=== PATIENT | male | born 1945 | race Caucasian/White ===

== ENCOUNTER → 2020-06-14 | Outpatient (CLI) | payer OTHER ==
[~2020-06-14] MED LIST: ALFUZOSIN HCL10 MG PO; ASA81BEC PO; CENTRUM SILVER1 EAC7 PO; GLUCOSAMINE &1 EACH PO; HYDROCODON-ACE1 EA11 PO; PRINIVIL10 MG PO; PROSCAR 5MG TABL5 M1 PO
== END ==
LOC: LAB 07:52
PROVIDERS: ATTEND Surgery
DX: Z01.812 Encounter for preprocedural laboratory examination (principal); Z20.828 Contact with and (suspected) exposure to other viral communicable diseases

== ENCOUNTER → 2020-06-17 | Day surgery (SDC) | payer OTHER ==
[~2020-06-17] VITALS: Ht 170.2 cm; Wt 71.2 kg
--- NOTE | 2020-06-17 12:36 | EKG ---
[facility] [place] [address] ELECTROCARDIOGRAM REPORT Name: MARCIAL KIM Room #: REG [facility].#: [id number] Admission: 06/17/20 Attend Phys: Armen French MD Discharge: Date of : 43 Report #: [id number] THIS REPORT FOR: cc: Matteo Baker MD, Steven E. MD Couchonnal, Luis F. MD ~ THIS REPORT FOR: //name// [facility] Test Date: 2020-06-17 Test Time: 12:27:49 Pat Name: MARCIAL KIM Department: Room: Gender: Service Desk Specialist: RAISA : 1945 Requested By: Armen French Order Number: [id number] MD: Juan C Doll Measurements Intervals [place] Rate: 73 P: 3 [place]: 197 QRS: -37 QRSD: 79 T: -40 QT: 451 QTc: 497 Interpretive Statements Sinus bradycardia Left atrial enlargement RSR' in V1 or V2, right VCD or RVH Left ventricular hypertrophy No previous ECG available for comparison Electronically Signed On 06-17-2020 12:36:06 CDT by Juan C Doll [email or web address] <ELECTRONICALLY SIGNED> By: Juan C Doll MD 06/17/20 1236 1227 1227 Juan C Doll MD /EPI
[2020-06-17 12:48] VITALS: BP 152/59
--- NOTE | 2020-06-17 16:49 | O ---
[facility] [place] [place] [address] OPERATIVE REPORT Name: MARCIAL KIM Room #: REG [facility]#: [id number] Admission: 06/17/20 Attend Phys: Armen French MD Discharge: Date of : 43 Report #: [id number] THIS REPORT FOR: cc: Matteo Baker MD, Steven E. MD Franey,Armen Cooper MD ~ CC: [facility] MATTEO French DATE OF SERVICE: 06/17/2020 PATIENT OF: Matteo Baker MD. PREOPERATIVE DIAGNOSIS: Left inguinal hernia. POSTOPERATIVE DIAGNOSIS: Left inguinal hernia with a left cord lipoma. PROCEDURES: Left inguinal hernia repair with Prolene hernia system mesh and excision of a left cord lipoma. SURGEON: Armen French MD. ANESTHESIA: Local with IV sedation. DESCRIPTION OF PROCEDURE: The patient was brought to the operating room and placed on operative table in the supine position. Sequential compression devices were in place for DVT prophylaxis. There was no indication for preoperative antibiotics. The patient underwent IV sedation. Left inguinal area was prepped and draped in a sterile fashion. Skin and subcutaneous tissues were then infiltrated with 0.5% Marcaine and 1% Xylocaine in a 1:1 mixture. Left inguinal skin incision was then performed using #10 scalpel blade. Hemostasis was obtained using electrocautery as well as clamps and 2-0 chromic ties. Dissection was carried down through subcutaneous tissue to the external oblique fascia, which was then incised with a knife and opened with Metzenbaum scissors. The ilioinguinal nerve was identified, dissected free, injected with a local mixture and preserved. Cord was then elevated and held in place with a [place]rie drain. Cremasteric muscle fibers were then split in the direction of their fibers using clamp and electrocautery. A cord lipoma was identified, dissected free, clamped, excised and tied with a 2-0 chromic tie. Floor was inspected and there was a [id number]-lo-[id number] sized direct inguinal hernia defect. This hernia sac was dissected free, opened and the hernia sac was reduced back into the preperitoneal space. An indirect inguinal hernia sac was then also identified, dissected free and reduced back into the preperitoneal space at the internal ring. The preperitoneal space was developed from the internal ring to [address] [address] OPERATIVE REPORT Name: MARCIAL KIM [facility] [id number] Admission: 06/17/20 Attend Phys: Armen French MD Discharge: Date of : 43 Report #: [id number] the pubic tubercle and an extended Prolene hernia system mesh was then inserted through the internal ring and the underlay patch was then deployed into the preperitoneal space extending from the internal ring to the pubic tubercle. The floor was then closed over the mesh using a running 2-0 Prolene 2-layer Shouldice repair. The overlay patch was then deployed into the inguinal canal and secured to the pubic tubercle with the same running 2-0 Prolene suture. The mesh was then secured superiorly and at the connector using simple interrupted 2-0 Vicryl sutures. The mesh was split and wrapped around the cord, secured to the inguinal ligament with simple interrupted 2-0 Vicryl suture. The cord and ilioinguinal nerve were then returned to the canal intact. The external oblique fascia was then closed using running 2-0 Vicryl suture. James's fascia was then reapproximated using 3 simple interrupted 2-0 chromic sutures and the skin then closed with a running 4-0 subcuticular Vicryl stitch. Wound was then dressed with Mastisol, 1/2-inch Steri-Strips cut in half, Telfa, 4 x 4 gauze, sponge and tape. The patient was then awakened from the IV sedation, taken to recovery room in good condition. Estimated blood loss was approximately 10 mL and the patient tolerated procedure well. All sponge, lap and instrument counts correct x 2. <ELECTRONICALLY SIGNED> By: Armen French MD 06/17/20 1649 1542 1617 Armen French MD /nt
--- NOTE | 2020-06-21 16:06 | PATH ---
[facility] [address] [place] [address] PATHOLOGY RPT PROCEDURE Name: TOYIN KIMICK David Room #: REG [facility].#: [id number] Admission: 06/17/20 Date of : 43 Discharge: Report #: [id number] Path Case #: [id number] [facility] Accession Number: [id number] . 01 Material submitted: . hernia - CORD LIPOMA . 01 Clinical history: . HERNIA REPAIR, INGUINAL UNILATERAL . 02 Diagnosis: Mature adipose tissue, cord lipoma, resection: - Fragments compatible with a lipoma. - Fibrovascular connective tissue along with reactive skeletal muscle tissue. (IUV:erica; 06/21/2020) QMS 06/21/2020 1437 Local . 02 Electronically signed: . Lucila Chou MD, Pathologist NPI- [id number] . 01 Gross description: . The specimen is received in formalin, labeled "[place], Chau, cord lipoma" and consists of multiple segments of membranous catalan-brown tissue and yellow lobulated tissue measuring 5.5 x 4.8 x 1.4 cm. Sectioning reveals no gross lesions and manufacturers service representative tissue submitted in A1. (SDY; 06/20/2020) SYU/SYU 06/20/2020 1633 Local . 02 Pathologist provided ICD-10: K40.90 . 02 CPT . 780763 Specimen Comment: A courtesy copy of this report has been sent to [phone] Specimen Comment: [id number] Specimen Comment: Report sent to / DR ETIENNE Performed at: [address], [place], [place] [id number] MD Caleb Fung MD Phone: [phone] Performed at: [address] [id number] MD Lucila Chou MD Phone: [phone]
== END | disposition home or self-care (01) ==
LOC: OR 09:20
PROVIDERS: ATTEND Surgery
DX: K40.90 Unilateral inguinal hernia, without obstruction or gangrene, not specified as recurrent (principal); I10 Essential (primary) hypertension; Z79.899 Other long term (current) drug therapy; Z98.890 Other specified postprocedural states; Z90.49 Acquired absence of other specified parts of digestive tract
CPT/HCPCS: 50010; 50101; 62110; 62850; 70005